=== PATIENT | female | born 2000 ===

== ENCOUNTER 2025-05-16 18:00 | Inpatient (IN) | payer BC ==
[2025-05-16 21:36] VITALS: BMI 30.6
[2025-05-16] MEDS ORDERED: Ibuprofen 800 MG TAB PO PRN (21:39)
[2025-05-16] MEDS ORDERED: Lidocaine 1% (PF) 30 ML VIAL SC PRN (21:39)
[2025-05-16] MEDS ORDERED: HYDROcodone/Acetaminophen 5/325 mg Tablet PO PRN ×2 (21:39)
[2025-05-16] MEDS ORDERED: hydrALAZINE 20 MG/ML VIAL SLOW IVP PRN (21:39)
[2025-05-16] MEDS ORDERED: Ondansetron PF 4 MG/2 ML Vial IVP PRN (21:39)
[2025-05-16] MEDS ORDERED: Oxytocin 30 units/NS 500 ML 500 ML IV SCH (21:45)
[2025-05-16 22:03] LABS: Hematocrit 32.2 % (34.9-44.5); Hemoglobin 11.3 g/dL (12.0-15.5); Mean Corpuscular Hemoglobin 30.1 pg (27.0-33.0); Mean Corpuscular Volume 85.6 fL (81.6-98.3); Platelet Count 171 10x3/uL (150-450); Red Blood Cell (RBC) Count 3.76 10x6/uL (3.90-5.03); White Blood Cell (WBC) Count 8.73 10x3/uL (3.5-10.5)
[2025-05-16 23:11] LABS: Syphilis Antibody Index 0.06 S/CO (<1.00 Non-Reactive)
[2025-05-16 23:13] LABS: Hep B Surf Ag - L&D Non-Reactive S/CO (NonReactive)
[2025-05-17] MEDS: Oxytocin 30 units/NS 500 ML 500 ML IV SCH (00:11)
[2025-05-17] MEDS: fentaNYL/Ropivacaine Epidural 100 ML ONE (06:55)
[2025-05-17] MEDS ORDERED: Acetaminophen 325 MG TAB PO PRN (07:26)
[2025-05-17] MEDS ORDERED: Ondansetron PF 4 MG/2 ML Vial IVP PRN ×2 (07:26→14:26)
[2025-05-17] MEDS ORDERED: diphenhydrAMINE 50 MG/ML VIAL IVP PRN (07:26)
[2025-05-17] MEDS ORDERED: fentaNYL 2 mcg/Ropivacaine 0.2% Epidural 100 ML CADD EPIDURAL SCH (07:30)
[2025-05-17] MEDS ORDERED: Communication Order-Pharmacy FS SCH (07:30)
[2025-05-17] MEDS ORDERED: Oxytocin 30 units/NS 500 ML 500 ML IV SCH (14:26)
[2025-05-17] MEDS ORDERED: Milk Of Magnesia 30 ML UDCUP PO PRN (14:26)
[2025-05-17] MEDS ORDERED: hydrALAZINE 20 MG/ML VIAL SLOW IVP PRN (14:26)
[2025-05-17] MEDS ORDERED: diphenhydrAMINE 25 MG CAP PO PRN (14:26)
[2025-05-17] MEDS ORDERED: Benzocaine-Menthol 82.5 ML CAN TOP PRN (14:26)
[2025-05-17] MEDS ORDERED: Bisacodyl 10 MG SUPP PR PRN (14:26)
[2025-05-17] MEDS ORDERED: Lanolin Ointment 7 GM TUBE TOP PRN (14:26)
[2025-05-17] MEDS ORDERED: HYDROcodone/Acetaminophen 5/325 mg Tablet PO PRN ×2 (14:26)
[2025-05-17] MEDS: Ibuprofen 800 MG TAB PO SCH (15:42)
[2025-05-17] MEDS: Ferrous Sulfate 325 MG TAB PO SCH (15:42)
[2025-05-17] MEDS ORDERED: Bupivacaine/Epinephrine 0.25% 30 ML VIAL ONE (19:14)
[2025-05-18 11:31] VITALS: BP 120/68; TEMP 98.3
== END 2025-05-18 17:05 | disposition home or self-care (01) | DRG 807 ==
LOC: CSHLD 20:50 → CSHPP 05-17 14:45
PROVIDERS: ADMIT Obstetrics & Gynecology; ATTEND Obstetrics & Gynecology
PROC: 10E0XZZ Delivery of Products of Conception, External Approach (ICD-10-PCS; principal; 2025-05-17)
PROC: 0HQ9XZZ Repair Perineum Skin, External Approach (ICD-10-PCS; 2025-05-17)
PROC: 10907ZC Drainage of Amniotic Fluid, Therapeutic from Products of Conception, Via Natural or Artificial Opening (ICD-10-PCS; 2025-05-17)
PROC: 4A1HXCZ Monitoring of Products of Conception, Cardiac Rate, External Approach (ICD-10-PCS; 2025-05-17)
DX: O48.0 Post-term pregnancy (principal); Z37.0 Single live birth; O70.1 Second degree perineal laceration during delivery; Z3A.40 40 weeks gestation of pregnancy
CPT/HCPCS: 36415; 51702; 85027; 85461; 86780; 86850; 86870; 86900; 86901; 87340; 90384; 96372; J2590; J7120